=== PATIENT | male | born 1965 | race Hispanic/Latino ===

== ENCOUNTER 2021-07-10 15:35 | Emergency (ER) | payer OTHER | END 2021-07-10 17:02 | disposition home or self-care (01) | LOC: CSHERS 15:35 | DX: M25.552 Pain in left hip (principal); M79.605 Pain in left leg; W11.XXXA Fall on and from ladder, initial encounter ==

== ENCOUNTER → 2021-08-06 23:00 | Emergency (ER) | payer OTHER ==
[~2021-08-06 23:00] MED LIST: Dexamethasone 10 MG/ML VIAL ONE
== END | disposition home or self-care (01) ==
LOC: CSHERS 23:00
DX: M25.552 Pain in left hip (principal); M79.652 Pain in left thigh; W11.XXXD Fall on and from ladder, subsequent encounter; Z85.46 Personal history of malignant neoplasm of prostate
CPT/HCPCS: 96372; 99283; J1100

== ENCOUNTER 2021-09-21 18:18 | Emergency (ER) | payer OTHER ==
[2021-09-21] MEDS ORDERED: Fentanyl 100 MCG/2 ML VIAL ONE (20:39)
[2021-09-21] MEDS ORDERED: Ketorolac Tromethamine 30 MG/ML VIAL ONE (20:39)
[2021-09-21] MEDS ORDERED: Dexamethasone 10 MG/ML VIAL ONE (20:39)
[2021-09-21 20:42] LABS: #Basophils 0.1 10x3/uL (0.0-0.2); #Eosinphils 0.5 10x3/uL (0.0-0.5); #Monocytes 0.6 10x3/uL (0.0-1.1); #Neutrophils 4.7 10x3/uL (1.5-8.4); %Basophils 1.6 % (0.0-2.0); %Eosinophils 6.6 % (0.0-6.0); %Lymphocytes 20.6 % (18.0-47.0); %Monocytes 8.5 % (0.0-10.0); %Neutrophils 62.6 % (40.0-75.0); Hemoglobin 9.7 g/dL (13.5-17.5); Mean Corpuscular HGB CONC 29.7 g/dL (32.0-36.0); Mean Corpuscular Hemoglobin 20.8 pg (27.0-33.0); Mean Corpuscular Volume 70.2 fl (81.2-95.1); Mean Platelet Volume 10.2 fl (7.4-10.4); Platelet Count 265 10x3/uL (150-450); RBC Distribution Width 21.6 % (11.5-14.5); Red Blood Cell (RBC) Count 4.66 10x6/uL (4.32-5.72); White Blood Cell (WBC) Count 7.6 10x3/uL (3.5-10.5)
[2021-09-21 20:56] LABS: ALT (SGPT) 29 U/L (8-55); AST (SGOT) 24 U/L (5-34); Alkaline Phosphatase 130 U/L (40-110); Anion Gap 14 mmol/L (10-20); BUN (Urea Nitrogen) 11 mg/dL (8.4-25.7); Bilirubin, Total 0.2 mg/dL (0.2-1.2); CK (CPK) 128 U/L (30-200); Calc. Creatinine Clearance 0 mL/min (70-130); Calcium 9.2 mg/dL (7.8-10.44); Carbon Dioxide 25 mmol/L (22-29); Chloride 105 mmol/L (98-107); Estimated GFR 99; Globulin 3.6 g/dL (2.4-3.5); Glucose 91 mg/dL (70-105); Potassium 4.4 mmol/L (3.5-5.1); Protein, Total 7.6 g/dL (6.0-8.3); Sodium 140 mmol/L (136-145)
[2021-09-21 21:05] LABS: Anisocytosis SLIGHT = 6-15 cells (100X) (0-5/hpf); Hypochromia SLIGHT = 6-15 cells (100X) (0-5/hpf)
[2021-09-21 21:06] LABS: Elliptocytes SLIGHT = 2-5 cells (100X) (0-1/hpf)
[2021-09-21 21:08] LABS: Large Platelets SLIGHT; Platelet Morphology Comment Appears Adequate
== END 2021-09-21 21:20 | disposition home or self-care (01) ==
LOC: CSHERS 18:18
DX: M54.40 Lumbago with sciatica, unspecified side (principal); M79.605 Pain in left leg; I10 Essential (primary) hypertension; Z85.46 Personal history of malignant neoplasm of prostate
CPT/HCPCS: 80053; 82550; 85025; 96374; 96375; J1100; J1885; J3010